=== PATIENT | male | born 1955 | race Caucasian/White ===

== ENCOUNTER → 2020-10-23 | Outpatient (CLI) | payer OTHER ==
[~2020-10-23] MED LIST: DOXA8TAB63 PO; LOSA25TA25 PO; SIMV20TA19 PO
[2020-10-23 14:22] LABS: BASOPHILS % (AUTO) 0 % (0-1); EOSINOPHILS % (AUTO) 2 % (1-7); LYMPHOCYTES % (AUTO) 15 % (22-44); MEAN CORPUSCULAR HEMOGLOBIN 32.3 pg (27.5-34.5); MEAN CORPUSCULAR HGB CONC 34.9 g/dL (33.2-36.2); MEAN PLATELET VOLUME 7.3 fL (7.4-10.4); MONOCYTES % (AUTO) 9 % (2-9); NEUTROPHILS % (AUTO) 74 % (42-75); PLATELET COUNT 156 x10^3/uL (130-400); RED CELL DISTRIBUTION WIDTH 14.1 % (9.4-14.8)
[2020-10-23 14:23] LABS: MICROSCOPIC NOT IND
[2020-10-23 14:34] LABS: ALBUMIN 4.1 g/dL (3.4-5.0); ANION GAP 4 mmol/L (5-15); CALCIUM 10.1 mg/dL (8.5-10.1); CHLORIDE 114 mmol/L (98-107)
[2020-10-23 14:35] LABS: INTERNATIONAL NORMALIZED RATIO 1.02 (0.93-1.1); PROTHROMBIN TIME 10.9 Seconds (9.6-11.5)
[2020-10-23 14:38] LABS: ALANINE AMINOTRANSFERASE 41 U/L (12-78); ALKALINE PHOSPHATASE 60 U/L (45-117); BILIRUBIN,TOTAL 1.9 mg/dL (0.2-1.0); CREATININE 1.76 mg/dL (0.7-1.3); TOTAL PROTEIN 7.3 g/dL (6.4-8.2)
[2020-10-23 14:49] LABS: MD NO
== END | disposition home or self-care (01) ==
LOC: STAR 13:13
PROVIDERS: ATTEND Neurological Surgery
DX: Z01.818 Encounter for other preprocedural examination (principal); M48.061 Spinal stenosis, lumbar region without neurogenic claudication; R00.1 Bradycardia, unspecified; M47.26 Other spondylosis with radiculopathy, lumbar region; Z20.822 Contact with and (suspected) exposure to COVID-19
CPT/HCPCS: 36415; 71046; 80053; 81003; 85025; 85610; 85730; 93005; U0003; U0005

== ENCOUNTER 2020-10-29 05:23 | Observation (INO) | payer OTHER ==
[~2020-10-29] VITALS: Ht 188 cm; Wt 114.0 kg
[2020-10-29] MEDS ORDERED: ACET-1600 PO (06:03)
[2020-10-29] MEDS ORDERED: VANCOMYCIN 1,000 MG ONE (06:28)
[2020-10-29] MEDS ORDERED: BACITRACIN 50,000 UNIT ONE (06:28)
[2020-10-29] MEDS ORDERED: BUPIVACAINE/PF 0.5% ONE (06:28)
[2020-10-29] MEDS ORDERED: EPINEPHRINE 1 MG/ML, 1ML ONE (06:28)
[2020-10-29] MEDS ORDERED: LACTATED RINGERS 1,000 ML IV SCH (06:30)
[2020-10-29] MEDS ORDERED: CHLORHEXIDINE 15 ML UDC PO ONE (06:30)
[2020-10-29] MEDS ORDERED: MIDAZOLAM 1 MG/ML, 2ML ONE (06:47)
[2020-10-29] MEDS ORDERED: FENTANYL PF 250 MCG/5ML ONE (06:49)
[2020-10-29] MEDS ORDERED: PROPOFOL 50 ML ONE ×2 (06:55→08:00)
[2020-10-29] MEDS ORDERED: PHENYLEPHRINE 10 MG/ML ONE (06:59)
[2020-10-29] MEDS ORDERED: EPHEDRINE 50 MG/ML, 1ML ONE (06:59)
[2020-10-29] MEDS ORDERED: DEXAMETHASONE 4 MG/ML, 1ML ONE (08:12)
[2020-10-29] MEDS ORDERED: CEFAZOLIN 1,000 MG ONE (08:12)
[2020-10-29] MEDS ORDERED: ONDANSETRON 2MG/ML, 2ML ONE (08:12)
[2020-10-29] MEDS ORDERED: PROPOFOL 10 MG/ML, 20ML ONE (08:12)
[2020-10-29] MEDS ORDERED: SUCCINYLCHOLINE 20 MG/ML, 10ML ONE (08:12)
[2020-10-29] MEDS ORDERED: LIDOCAINE-MPF 2% ,5ML ONE (08:12)
[2020-10-29] MEDS ORDERED: ROCURONIUM 10MG/ML,5ML ONE (08:12)
[2020-10-29] MEDS ORDERED: SENNA/DOCUSATE TABLET PO PRN (08:30)
[2020-10-29] MEDS ORDERED: DIPHENHYDRAMINE 50 MG/ML, 1ML IVPush PRN (08:30)
[2020-10-29] MEDS ORDERED: DIPHENHYDRAMINE 50 MG/ML, 1ML IM PRN (08:30)
[2020-10-29] MEDS ORDERED: PHARMACY MAY ADJ FOR RENAL FX MC PRN (08:30)
[2020-10-29] MEDS ORDERED: HYDROcodone/APAP 5/325 TABLET PO PRN (08:30)
[2020-10-29] MEDS ORDERED: BISACODYL 10 MG SUPP PR PRN (08:30)
[2020-10-29] MEDS ORDERED: PROMETHAZINE 25 MG/ML, 1ML IM PRN (08:30)
[2020-10-29] MEDS ORDERED: CEFAZOLIN PMX 1GM/50ML 50 ML IVPB SCH (08:30)
[2020-10-29] MEDS ORDERED: ONDANSETRON 2MG/ML, 2ML IVPush PRN (08:30)
[2020-10-29] MEDS ORDERED: HYDROmorphone 1 MG/ML, 1ML INJ IVPush PRN ×2 (08:30→09:00)
[2020-10-29] MEDS ORDERED: MAGNESIUM HYDROXIDE 8%, 30ML UDC PO PRN (08:30)
[2020-10-29] MEDS ORDERED: LABETALOL 5MG/ML, 20ML IVPush PRN (08:30)
[2020-10-29] MEDS: ENOXAPARIN 40 MG/0.4 ML SQ SCH (08:30)
[2020-10-29] MEDS ORDERED: METHOCARBAMOL 1,000 MG in DEXTROSE 5% 100 ML IV ONE (08:30)
[2020-10-29] MEDS ORDERED: DIPHENHYDRAMINE 50 MG CAPSULE PO PRN (08:30)
[2020-10-29] MEDS ORDERED: ALBUTEROL SULFATE 2.5 MG/3 ML NPPB PRN (09:00)
[2020-10-29] MEDS ORDERED: MEPERIDINE/PF 25MG/0.5ML IVPush PRN (09:00)
[2020-10-29] MEDS ORDERED: LABETALOL 5MG/ML, 20ML IV PRN (09:00)
[2020-10-29] MEDS ORDERED: FENTANYL PF 100 MCG/2ML IV PRN (09:00)
[2020-10-29] MEDS ORDERED: MIDAZOLAM 1 MG/ML, 2ML IV PRN (09:00)
[2020-10-29] MEDS ORDERED: DOXAZOSIN 2MG TABLET PO SCH ×2 (09:00→21:00)
[2020-10-29] MEDS ORDERED: ACETAMINOPHEN 325 MG TABLET PO PRN (09:00)
[2020-10-29] MEDS ORDERED: OXYcodone 5 MG/5 ML ORAL.SOL UDC PO PRN (09:00)
[2020-10-29] MEDS: SODIUM CHLORIDE FLUSH 10ML SYR IVF SCH ×2 (09:00→21:00)
[2020-10-29] MEDS ORDERED: PROMETHAZINE 25 MG/ML, 1ML IVPush PRN (09:00)
[2020-10-29] MEDS ORDERED: METHOCARBAMOL 1,000 MG in DEXTROSE 5% 100 ML IV PRN (10:00)
[2020-10-29] MEDS: LOSARTAN 25MG TABLET PO SCH (11:43)
[2020-10-29 12:40] VITALS: BP 135/73
[2020-10-29] MEDS ORDERED: CEFAZOLIN 1,000 MG IVPB SCH (15:00)
[2020-10-29] MEDS: HYDROcodone/APAP 10/325 MG TABLET PO PRN ×2 (15:50→20:18)
[2020-10-29] MEDS: CEFAZOLIN PMX 1GM/50ML 50 ML IVPB SCH (15:50)
[2020-10-29] MEDS: NS + 20MEQ KCL 1,000 ML IV SCH (19:14)
[2020-10-29 20:04] VITALS: BP 107/60
[2020-10-29] MEDS ORDERED: SIMVASTATIN 20 MG TABLET PO SCH (21:00)
[2020-10-30] MEDS: CEFAZOLIN PMX 1GM/50ML 50 ML IVPB SCH (00:05)
[2020-10-30] MEDS: HYDROcodone/APAP 10/325 MG TABLET PO PRN (00:17)
[2020-10-30 01:06] VITALS: BP 118/66
[2020-10-30 04:59] VITALS: BP 108/63
[2020-10-30] MEDS ORDERED: METH-640 PO (08:13)
[2020-10-30] MEDS ORDERED: TRAM100T39 PO (08:13)
[2020-10-30 08:15] VITALS: BP 153/80
[2020-10-30] MEDS: SODIUM CHLORIDE FLUSH 10ML SYR IVF SCH (09:00)
[2020-10-30] MEDS: LOSARTAN 25MG TABLET PO SCH (09:01)
[2020-10-30] MEDS: ENOXAPARIN 40 MG/0.4 ML SQ SCH (09:02)
[2020-10-30] MEDS: NS + 20MEQ KCL 1,000 ML IV SCH (09:20)
[2020-10-30 12:57] VITALS: BP 119/70
[2020-10-31] MEDS ORDERED: METHOCARBAMOL 750 MG TABLET PO SCH (16:30)
== END 2020-10-30 13:40 | disposition home or self-care (01) ==
LOC: OUT 05:23 → ORIP 08:26 → 4NE 10:34
PROVIDERS: ADMIT Neurological Surgery; ATTEND Neurological Surgery
DX: M48.061 Spinal stenosis, lumbar region without neurogenic claudication (principal); M47.16 Other spondylosis with myelopathy, lumbar region; M47.26 Other spondylosis with radiculopathy, lumbar region; M51.16 Intervertebral disc disorders with radiculopathy, lumbar region; M51.37 Other intervertebral disc degeneration, lumbosacral region; K21.9 Gastro-esophageal reflux disease without esophagitis; I10 Essential (primary) hypertension; N40.0 Benign prostatic hyperplasia without lower urinary tract symptoms; G47.33 Obstructive sleep apnea (adult) (pediatric); E66.9 Obesity, unspecified; G61.81 Chronic inflammatory demyelinating polyneuritis; Z79.899 Other long term (current) drug therapy
CPT/HCPCS: 63056; 63057; 72100; 95938; 95941; 96361; 96365; 96366; 96372; 97161; 97165; G0378; J0171; J0330; J0690; J1100; J1650; J2250; J2370; J2405; J2704; J2800; J3010; J3370; J3480; J3490; J7120; S0020